=== PATIENT | male | born 1975 | race Caucasian/White ===

== ENCOUNTER 2016-04-23 14:37 | Emergency (ER) | payer OTHER ==
[2016-04-23 15:58] LABS: HEMOGLOBIN 13.3 gm/dl (14.0-17.5); RED BLOOD COUNT 4.11 M/UL (4.20-5.50)
[2016-04-23 16:07] LABS: WHITE BLOOD COUNT 1.5 K/UL (4.5-11.0)
[2016-04-23 16:09] LABS: BUN/CREATININE RATIO 15 (0-10)
== END 2016-04-23 21:04 | disposition home or self-care (01) ==
LOC: ER1 14:37
PROVIDERS: Emergency Medicine
DX: R07.9 Chest pain, unspecified (principal); K75.9 Inflammatory liver disease, unspecified; D72.819 Decreased white blood cell count, unspecified; D69.6 Thrombocytopenia, unspecified; Z79.899 Other long term (current) drug therapy
CPT/HCPCS: 36415; 71010; 80053; 82550; 82553; 83874; 83880; 84484; 85025; 93005; 99285

== ENCOUNTER → 2016-05-14 | Outpatient (CLI) | payer OTHER | LOC: KOH-I 15:01 | DX: R18.8 Other ascites (principal); R10.9 Unspecified abdominal pain; K74.60 Unspecified cirrhosis of liver; K76.6 Portal hypertension | CPT/HCPCS: 74170; Q9962 ==

== ENCOUNTER 2020-06-06 05:01 | Emergency (ER) | payer OTHER ==
[2020-06-06 05:29] LABS: HEMOGLOBIN 10.2 gm/dl (14.0-17.5); RED BLOOD COUNT 3.69 M/UL (4.20-5.50); WHITE BLOOD COUNT 1.7 K/UL (4.5-11.0)
[2020-06-06 05:55] LABS: BUN/CREATININE RATIO 15 (0-10)
[2020-06-06 10:35] LABS: HEMOGLOBIN 10.4 gm/dl (14.0-17.5); RED BLOOD COUNT 3.84 M/UL (4.20-5.50)
[2020-06-06 10:52] LABS: WHITE BLOOD COUNT 1.6 K/UL (4.5-11.0)
== END 2020-06-06 13:50 | disposition home or self-care (01) ==
LOC: ER1 05:01
PROVIDERS: Emergency Medicine; Student in an Organized Health Care Education/Training Program
DX: R10.9 Unspecified abdominal pain (principal)
CPT/HCPCS: 70450; 80053; 80307; 81001; 82550; 82553; 82803; 83605; 83690; 83874; 83880; 84484; 85025; 85610; 85730; 86140; 86850; 86900; 86901; 93005; 96372; 96374; 99284; G0480; J0500; Q9967

== ENCOUNTER 2020-11-20 14:59 | Emergency (ER) | payer OTHER | END 2020-11-20 15:10 | disposition left against medical advice (07) | LOC: ER1 14:59 | DX: Z53.21 Procedure and treatment not carried out due to patient leaving prior to being seen by health care provider (principal) ==